=== PATIENT | female | born 1980 ===

== ENCOUNTER 2017-02-27 12:23 | Emergency (ER) | payer OTHER, SELFPAY ==
[2017-02-27 12:31] VITALS: RESP 18
--- NOTE | 2017-02-27 12:33 | ED PDOC ---
HPI: Female Pain Time Seen by Provider: 02/27/17 12:28 Chief Complaint (Nursing): Female Genitourinary Chief Complaint (Provider): Vaginal abscess History Per: Patient Additional Complaint(s): 37 yo female, no PMH, presents to ED for evaluation of possible abscess to the vaginal area. Pt reports red, swollen, Painful mass to the vaginal area that has worsened over the last 2 days. Past Medical History Reviewed: Nursing Documentation, Vital Signs Vital Signs: Last Vital Signs Temp 98.9 F 02/27/17 12:30 Pulse 81 02/27/17 12:30 Resp 18 02/27/17 12:30 BP 129/70 02/27/17 12:30 Pulse Ox 99 02/27/17 12:30 - Medical History PMH: No Chronic Diseases - Surgical History Surgical History: No Surg Hx - Family History Family History: States: No Known Family Hx - Living Arrangements Living Arrangements: With Family - Social History Current smoker - smoking cessation education provided: No Alcohol: None Drugs: Denies - Home Medications Home Medications: Ambulatory Orders Medication Instructions Recorded Ciprofloxacin [Cipro] 500 mg PO BID #6 tab 02/27/17 Ibuprofen [Motrin] 600 mg PO Q6 #20 tab 02/27/17 - Allergies Allergies/Adverse Reactions: Allergies Allergy/AdvReac Type Severity Reaction Status Date / Time No Known Allergies Allergy Verified 02/27/17 12:29 Review of Systems ROS Statement: Except As Marked, All Systems Reviewed And Found Negative Genitourinary Female: Positive for: Other (vaginal pain) Physical Exam - Reviewed Nursing Documentation Reviewed: Yes Vital Signs Reviewed: Yes - Physical Exam Appears: Positive for: Well, Non-toxic, No Acute Distress Head Exam: Positive for: ATRAUMATIC, NORMAL INSPECTION, NORMOCEPHALIC Skin: Positive for: Normal Color, Warm, DRY Eye Exam: Positive for: EOMI, Normal appearance, PERRL ENT: Positive for: Normal ENT Inspection Neck: Positive for: Normal, Painless ROM Cardiovascular/Chest: Positive for: Regular Rate, Rhythm Respiratory: Positive for: CNT, Normal Breath Sounds Gastrointestinal/Abdominal: Positive for: Normal Exam, Bowel Sounds, Soft Pelvic Exam: Positive for: Other (tender, erythematous, indurated, non fluctuant mass noted to right labia majora- consistent with bartholins abscess) Back: Positive for: Normal Inspection Extremity: Positive for: Normal ROM Neurologic/Psych: Positive for: Alert, Oriented - ECG O2 Sat by Pulse Oximetry: 99 Medical Decision Making Medical Decision Making: Pt started on Cipro and Motrin PO. On re-eval, Pt reports pain continues. medicated with 1 tab Percocet PO Case discussed with OB on-call, Dr. Andres, who reports Pt stable for trial of outpt therapy at this time. Follow up in office Disposition - Clinical Impression Clinical Impression: Bartholin cyst - Patient ED Disposition Is Patient to be Admitted: No - Disposition [facility] Disposition: Routine/Home Disposition Time: 15:37 Condition: STABLE Prescriptions: Ciprofloxacin [Cipro] 500 mg PO BID #6 tab Ibuprofen [Motrin] 600 mg PO Q6 #20 tab Instructions: Bartholin Cyst (ED) Print Language: [id number]
[2017-02-27] MEDS ORDERED: Oxycodone/Acetaminophen 5/325 mg Tab PO STA (13:02)
[2017-02-27] MEDS ORDERED: Oxycodone/Acetaminophen 5/325 mg Tab ONE (13:25)
[2017-02-27 14:52] VITALS: BP 113/71; PULSE 69; TEMP 98
[2017-02-27 15:24] VITALS: O2SAT 99
== END 2017-02-27 16:00 | disposition home or self-care (01) ==
LOC: H.ER 12:23
DX: N75.0 Cyst of Bartholin's gland (principal)